=== PATIENT | female | born 1940 | race Caucasian/White ===

== ENCOUNTER → 2016-10-04 | Outpatient (CLI) | payer MEDICARE, BC ==
--- NOTE | ~2016-10-04 | ECH ---
Transthoracic Echocardiography Report (TTE) Demographics Patient Name LILY RAO Date of Study 10/04/2016 Patient Number [id number] Visit Number [id number] Date of 1940 Room Number Accession Number [id number] Gender Female Age 75 year(s) Referring Patel Hodgson Glass Bulb Silverer Zaira Moore Physician RDCS Physician Ghazal Pacheco MD Hotel Office Manager Physician Maximo Supervising Ordering Physician Patel Hodgson MD/MLP Nurse Stress Analytics Associate Conclusions Contractility Score Summary Normal Left Ventricular contractility was noted. Summary Technically good exam. The estimated left ventricular ejection fraction is 60%. Diastolic assessment reveals Grade I diastolic dysfunction. The interatrial septum appears aneurysmal. Informed consent was obtained, bubble study was done, there is no evidence for a PFO or ASD. There is trivial aortic regurgitation by color Doppler. Recommendation The patient will be given the results of this study by the physician who ordered the exam. Procedure Type of Study TTE procedure:Echo Complete SF. Procedure Date Date: 10/04/2016 Start: 12:57 PM Technical Quality: Good visualization Additional Indications:Old CVA Appropriate Use Criteria: 3 Height: 66 inches Weight: 135 pounds BSA: 1.69 m Rhythm: Within normal limits HR: 69 bpm BP: 141/63 mmHg M-Mode/2D Measurements LV Diastolic Dimension: 4.52 cm LV Systolic Dimension: 3 cm LV Septum Diastolic: 0.9 cm LV PW Diastolic: 0.89 cm AO Root Dimension: 3 cm Cardiac Output: 4.77 l/min LA Dimension: 2.83 cm Cardiac Index: 2.82 l/min*m RV Diastolic Dimension: 2.64 cm LA volume index: 21 ml/m LVOT: 1.97 cm LVOT VTI: 22.71 cm RV Base: 1.8 cm LV Stroke volume: 69.19 ml RV Mid: 1.6 cm LV Stroke volume index: 40.94 ml/m TAPSE: 2.3 cm TDI-S': 12 cm/s Doppler Measurements AV Peak Velocity: 1.4 m/s MV Peak E-Wave: 0.75 m/s AV Peak Gradient: 7.84 mmHg MV Peak A-Wave: 1.23 m/s AV Mean Gradient: 5.59 mmHg MV E/A Ratio: 0.61 LVOT Peak Velocity: 0.93 m/s MV P1/2t: 74.5 msec AV Area (Continuity):2.02 cm MV Deceleration Time: 248.6 msec TR Velocity:2.31 m/s MV Area (PHT): 2.95 cm TR Gradient:21.34 mmHg PV Peak Velocity: 0.9 m/s Estimated RAP:5 mmHg PV Peak Gradient: 3.27 mmHg Estimated RVSP: 26 mmHg Estimated PASP: 26.34 mmHg E' Septal Velocity: 0.08 m/s A' Septal Velocity: 0.11 m/s E' Lateral Velocity: 0.07 m/s A' Lateral Velocity: 0.12 m/s RA Area: 11.15 cm Findings Left Ventricle Normal left ventricle size and function. Diastolic assessment reveals Grade I diastolic dysfunction. Right Ventricle Normal right ventricle structure and function. Left Atrium Normal left atrial size. The interatrial septum appears aneurysmal. Informed consent was obtained, bubble study was done, there is no evidence for a PFO or ASD. Right Atrium Normal right atrial size. Mitral Valve Normal mitral valve structure and function. Mild mitral regurgitation by color Doppler. Aortic Valve Normal aortic valve structure and function. There is trivial aortic regurgitation by color Doppler. Tricuspid Valve Normal tricuspid valve structure and function. Mild tricuspid regurgitation by color Doppler. Normal pulmonary pressures. Pulmonic Valve Normal pulmonic valve structure and function. Pericardial Effusion No evidence of pericardial effusion. Miscellaneous Visualized portions of the aortic root and ascending aorta appear normal in size. Pleural Effusion No evidence of pleural effusion. Contractility Score LV regional wall motion:(0-Non visualized 1-Normal 2-Hypokinesis 3-Akinesis 4-Dyskinesis 5-Aneurysm) Signature
== END | disposition home or self-care (01) ==
LOC: CARD 09-28 14:09
DX: I67.9 Cerebrovascular disease, unspecified (principal); Z86.73 Personal history of transient ischemic attack (TIA), and cerebral infarction without residual deficits

== ENCOUNTER → 2016-12-27 | Outpatient (CLI) | payer MEDICARE, BC | END | disposition home or self-care (01) | LOC: RAD.S 10-11 11:48 | DX: Z12.31 Encounter for screening mammogram for malignant neoplasm of breast (principal); M85.88 Other specified disorders of bone density and structure, other site ==